=== PATIENT | male | born 1945 | race Caucasian/White ===

== ENCOUNTER 2016-09-10 08:58 | Inpatient (IN) | payer MEDICARE, OTHER ==
[~2016-09-10 08:58] MED LIST: ASPIR 8181 M1 PO; COREG25 M1 PO; FISH OIL 1,0001 CA PO; LISINOPRIL-HCT1 EAC1 PO; METOPROLOL TART50 MG PO; NORCO 7.5/3251 TA1 NG; SIMVASTATIN40 MG PO; SYMBICORT 160-1 PUFF INH; TRAZODONE HCL100 M1 PO; XARELTO10 MG PO; ZOLOFT50 MG PO
[2016-09-10 10:28] LABS: ANION GAP 12 mmol/L (0-20); BLOOD UREA NITROGEN 11 mg/dl (6-24); CALCIUM 8.8 mg/dl (8.5-10.5); CARBON DIOXIDE-VENOUS 26 mmol/L (22-32); CHLORIDE 104 mmol/l (96-110); CREATININE 0.69 mg/dl (0.60-1.30); GLUCOSE 108 mg/dL (70-110); SODIUM 138 mmol/L (135-145); eGFR VALUE FOR BLACK >90 mL/Min
[2016-09-11 06:22] LABS: ANION GAP 10 mmol/L (0-20); BLOOD UREA NITROGEN 7 mg/dl (6-24); CALCIUM 8.5 mg/dl (8.5-10.5); CARBON DIOXIDE-VENOUS 27 mmol/L (22-32); CHLORIDE 103 mmol/l (96-110); CREATININE 0.71 mg/dl (0.60-1.30); GLUCOSE 134 mg/dL (70-110); POTASSIUM 4.1 mmol/L (3.7-5.1); SODIUM 136 mmol/L (135-145); eGFR VALUE FOR BLACK >90 mL/Min
[2016-09-11] MEDS ORDERED: HYDROCODON-ACE1 EA16 PO (09:57)
[2016-09-11] MEDS ORDERED: CYCLOBENZAPRINE5 M1 PO (09:58)
[2016-09-11] MEDS ORDERED: SENOKOT-S TABL1 EACH PO ×2 (09:59→10:06)
[2016-09-11] MEDS ORDERED: TYLENOL325 M2 PO (10:04)
[2016-09-11] MEDS ORDERED: NICORELIEF2 MG PO (13:48)
[2016-09-11] MEDS ORDERED: NICODERM PATCH TP (13:51)
[2016-10-31] MEDS ORDERED: LEXAPRO20 M2 PO (09:15)
[2017-01-22] MEDS ORDERED: ROBAXIN-750750 M1 PO (13:03)
[2017-01-22] MEDS ORDERED: NORCO 5-325 TA1 EACH PO (13:16)
[2017-01-22] MEDS ORDERED: SENOKOT-S TABL1 EACH PO (13:17)
== END 2016-09-11 14:20 | DRG 519 ==
LOC: SHSA 08:58 → ORE 11:00 → 5EC 13:45
PROVIDERS: Anesthesiology; ADMIT Neurological Surgery
PROC: 0SB20ZZ Excision of Lumbar Vertebral Disc, Open Approach (ICD-10-PCS; principal; 2016-09-10)
DX: M51.16 Intervertebral disc disorders with radiculopathy, lumbar region (principal); I50.20 Unspecified systolic (congestive) heart failure; I48.91 Unspecified atrial fibrillation; I11.0 Hypertensive heart disease with heart failure; I25.10 Atherosclerotic heart disease of native coronary artery without angina pectoris; F32.9 Major depressive disorder, single episode, unspecified; J44.9 Chronic obstructive pulmonary disease, unspecified; E78.5 Hyperlipidemia, unspecified; G47.00 Insomnia, unspecified; Z96.653 Presence of artificial knee joint, bilateral; Z95.0 Presence of cardiac pacemaker; Z72.0 Tobacco use
CPT/HCPCS: G8978-GP-CI; G8979-GP-CI; J0690; J3301